=== PATIENT | male | born 1955 | race African-American/Black ===

== ENCOUNTER 2023-01-23 10:03 | Emergency (ER) | payer MEDICARE ==
[~2023-01-23] VITALS: Ht 177.8 cm; Wt 112.6 kg
[~2023-01-23 10:03] MED LIST: ASPIRIN EC81 MG PO; CARVEDILOL12.5 MG PO; CLONIDINE HCL0.1 MG PO; GLUCOTROL5 MG PO; HYDROCHLOROTHIA25 MG PO; KEFLEX500 MG PO; LISINOPRIL10 MG PO; LOTRISONE CREAM15 GM TOP; METFORMIN HCL500 MG PO; PENICILLIN V P500 MG PO; SIMVASTATIN20 MG PO; ZOLPIDEM TARTRAT5 MG PO; unknown bp med
[2023-01-23] MEDS ORDERED: LASIX20 MG PO (10:24)
[2023-01-23 14:44] VITALS: BP 161/85
--- NOTE | 2023-01-24 22:06 | EKG ---
[facility] [address] [facility] [place] [address] Signed Sinus rhythm with 1st degree AV block Otherwise normal ECG No previous ECGs available Confirmed by Hazel Ba MD () on 01/24/2023 10:06:37 PM Electronically Signed By: HAZEL BA MD 01/24/232205 PATIENT NAME: CRESENCIO BENEDICT Electrocardiogram DATE OF : 59 PHYSICIAN: HAZEL BA MD REPORT #: [id number] REPORT IS CONFIDENTIAL AND NOT TO BE RELEASED WITHOUT AUTHORIZATION
== END 2023-01-23 14:44 | disposition short-term general hospital (02) ==
LOC: ED 10:03 → EDBD 10:04 → ED 10:04
DX: E87.5 Hyperkalemia (principal); I12.9 Hypertensive chronic kidney disease with stage 1 through stage 4 chronic kidney disease, or unspecified chronic kidney disease; N18.9 Chronic kidney disease, unspecified; E11.22 Type 2 diabetes mellitus with diabetic chronic kidney disease; Z87.891 Personal history of nicotine dependence; Z79.899 Other long term (current) drug therapy; Z20.822 Contact with and (suspected) exposure to COVID-19
CPT/HCPCS: 36415; 71045; 80053; 84132; 85025; 93005; 93010; 96374; 96375; 99285-25; C9803; J1815; U0003

== ENCOUNTER → 2023-05-04 | Emergency (ER) | payer MEDICARE, OTHER | LOC: ED 08:46 | DX: T82.868A Thrombosis due to vascular prosthetic devices, implants and grafts, initial encounter (principal); E11.22 Type 2 diabetes mellitus with diabetic chronic kidney disease; N18.9 Chronic kidney disease, unspecified; Z87.891 Personal history of nicotine dependence; Z79.899 Other long term (current) drug therapy; Z20.822 Contact with and (suspected) exposure to COVID-19; Y73.8 Miscellaneous gastroenterology and urology devices associated with adverse incidents, not elsewhere classified ==